=== PATIENT | male | born 1960 | race Caucasian/White ===

== ENCOUNTER 2020-05-22 17:51 | Emergency (ER) | payer OTHER ==
[~2020-05-22] VITALS: Ht 167.6 cm; Wt 124.7 kg
[2020-05-22 17:51] VITALS: BP_SYST 150
[2020-05-22] MEDS ORDERED: NACL 0.9% 1,000 ML IV ONE (18:30)
[2020-05-22 20:42] VITALS: BP_SYST 160
[2020-05-23] MEDS ORDERED: TRAM50TA PO (11:08)
[2020-05-23] MEDS ORDERED: NAPR-688 PO (11:08)
== END 2020-05-22 20:30 | disposition home or self-care (01) ==
LOC: SED 17:51
DX: R45.1 Restlessness and agitation (principal); R00.0 Tachycardia, unspecified
CPT/HCPCS: 93005; 96360; 99283; J7030

== ENCOUNTER 2020-05-23 08:22 | Emergency (ER) | payer OTHER ==
[~2020-05-23] VITALS: Ht 177.8 cm; Wt 136.1 kg
[2020-05-23 08:22] VITALS: BP_SYST 156
[2020-05-23] MEDS ORDERED: KETOROLAC TROMETHAMINE 60 MG/2 ML VIAL IM ONE (08:45)
[2020-05-23] MEDS ORDERED: traMADol HCL HCL 50 MG TABLET (ULTRAM) PO ONE (08:45)
[2020-05-23] MEDS ORDERED: NAPR-688 PO (11:08)
[2020-05-23] MEDS ORDERED: TRAM50TA PO (11:08)
[2020-05-23 11:27] VITALS: BP_SYST 178
== END 2020-05-23 11:27 | disposition home or self-care (01) ==
LOC: SED 08:22
DX: M54.5 Low back pain (principal)
CPT/HCPCS: 96372; 99283; J1885